=== PATIENT | male | born 1970 | race Caucasian/White ===

== ENCOUNTER 2018-07-04 18:36 | Emergency (ER) | payer SELFPAY ==
[2018-07-04 19:01] VITALS: BP 110/77; PULSE 85; TEMP 98.7; BMI 37.5
== END 2018-07-04 23:52 | disposition left against medical advice (07) ==
LOC: EDBD 18:36 → JER 18:36
DX: F10.120 Alcohol abuse with intoxication, uncomplicated (principal)
CPT/HCPCS: 99281-25